=== PATIENT | female | born 1990 | race Caucasian/White ===

== ENCOUNTER 2020-05-12 11:34 | Emergency (ER) | payer BC, SELFPAY ==
--- NOTE | ~2020-05-12 | XR_ITS ---
EXAMINATION: XR chest 1V portable INDICATION: Chest pain TECHNIQUE: Portable AP chest at 1322 hours COMPARISON: None available FINDINGS: The lungs are free of acute opacities. There is no pleural effusion or pneumothorax. The ca rdiomediastinal silhouette is normal. IMPRESSION: 1. No acute cardiopulmonary abnormality. Reviewed, dictated and finalized at location A.
[2020-05-12 11:38] VITALS: BP 156/83; PULSE 105; RESP 18; TEMP 36.8; O2SAT 97
--- NOTE | 2020-05-12 11:40 | ECG_ITS ---
Measurements Intervals [place] Rate: 99 P: 63 [place]: 142 QRS: 19 QRSD: 94 T: 1 QT: 347 QTc: 447 Interpretive Statements SINUS RHYTHM BORDERLINE ST-T WAVE ABNORMALITY- ANTEROLAT/INF LEADS BASELINE ARTIFACT- I, II, III, AVR, AVL, AVF, V1 BORDERLINE ECG Electronically Signed On 05-12-2020 11:55:15 CDT by Jeancarlos Stoner D.O.
[2020-05-12 11:42] VITALS: PULSE 105
[2020-05-12 12:06] LABS: Basophils Absolute Auto 0.1 K/mm3 (0.0-0.1); Basophils Percent Auto 0.7 % (0.2-1.2); Eosinophils Absolute Auto 0.2 K/mm3 (0-0.3); Eosinophils Percent Auto 2.3 % (0-4.4); Hematocrit 42.7 % (37.0-47.0); Hemoglobin 14.3 g/dL (12.0-15.0); Immature Granulocyte Absolute 0.02 K/mm3 (0.00-0.031); Immature Granulocyte Percent A 0.2 % (0-0.5); Lymphocytes Absolute Auto 2.62 K/mm3 (0.9-3.2); Mean Corpuscular HGB Conc 33.5 g/dl (32-36); Mean Corpuscular Hemoglobin 30.1 pg (26-34); Mean Corpuscular Volume 89.9 fl (80-100); Mean Platelet Volume 11.5 fl (7.4-10.4); Monocytes Absolute Auto 0.6 K/mm3 (0.1-0.6); Neutrophils Absolute Auto 6.2 K/mm3 (1.3-6.7); Neutrophils Percent Auto 63.8 % (45.5-73.1); Platelet Count Result 288 k/mm3 (150-375); Red Blood Count 4.75 M/mm3 (4.2-5.4); Red Cell Distribution Width 12.3 % (11.5-14.5); White Blood Count 9.7 K/mm3 (4.5-10.0)
[2020-05-12 12:20] LABS: Add Urine Microscopic? YES; Appearance Urine Cloudy (Clear); Bacteria Urine Trace /hpf; Bilirubin Urine Negative (Negative); Blood Urine Negative (Negative); Color Urine Yellow (Yellow); Glucose Urine UA Negative (Negative); Ketones Urine Negative (Negative); Leukocyte Esterase Ur 3+ LEU/UL (Negative); Mucus Urine Rare /lpf; Nitrate Urine Negative (Negative); Protein Urine Negative (Negative); Specific Grav Ur 1.013 (1.001-1.035); Squamous Epithelial Cell Urine Many /hpf (Few); Urobilinogen Urine Negative mg/dL (<2.0); WBC Urine 16-20 /hpf
[2020-05-12 12:21] LABS: Amphetamine Screen Urine Negative (Negative); Barbiturate Screen Urine Negative (Negative); Benzodiazepines Screen Urine Negative (Negative); Cannabinoid Screen Urine Negative (Negative); Cocaine Screen Urine Negative (Negative); Methadone Screen Urine Negative (Negative); Opiate Screen Urine Negative (Negative); Phencyclidine Screen Urine Negative (Negative)
[2020-05-12 12:23] LABS: Alanine Aminotransferase 21 U/L (4-35); Albumin Level 4.4 g/dL (3.5-5.1); Alkaline Phosphatase 77 U/L (38-126); Anion Gap 8 mmol/L (8-16); Aspartate Amino Transferase 24 U/L (14-36); Bilirubin,Total 0.3 mg/dL (0.2-1.3); Blood Urea Nitrogen 8 mg/dL (7-17); Carbon Dioxide 25 mmol/L (22-30); Chloride 102 mmol/L (98-107); D Dimer 0.27 ug/mL (<0.48); Estimated CRCL calculation 116 ml/min; Estimated Glomerular Filt Rate > 60; Glucose 100 mg/dL (65-105); Potassium 3.5 mmol/L (3.4-5.0); Sodium 135 mmol/L (137-145)
[2020-05-12 12:34] LABS: Troponin I < 0.012 ng/mL (0.000-0.034)
[2020-05-12 12:49] VITALS: BP 147/89; PULSE 82; RESP 15; O2SAT 99
--- NOTE | 2020-05-12 13:01 | ED.CHESTPAIN ---
HPI - Chest Pain General Chief Complaint: Chest Pain Stated Complaint: chest pain Time Seen by Provider: 05/12/20 11:40 Source: patient and family Mode of arrival: ambulatory Limitations: no limitations History of Present Illness HPI narrative: 29 years old white female, obese presents with left upper chest sharp stabbing pain radiating to the left upper extremity started 2-hour prior to arrival to the emergency room, resolved immediately on arrival to the emergency room. Patient reports a lot of stress lately. Patient planning to do gastric sleeve surgery and she is very anxious about it. Patient had history of panic attack and anxiety. Evaluate MD complaint: chest pain Review of Systems Review of Systems: Narrative: CONSTITUTIONAL: Denies fever, chills, or sweats. EYES: Denies visual changes, redness, or discharge. ENT: Denies rhinorrhea, congestion, sore throat, or otalgia. CARDIOVASCULAR: Denies chest pain, palpitations, or edema. RESPIRATORY: Denies cough or dyspnea. GASTROINTESTINAL: Denies abdominal pain, nausea, vomiting, or diarrhea. GENITOURINARY: Denies dysuria or hematuria. SKIN: Denies rash or itching. MUSCULOSKELETAL: Denies back pain, joint pain, or myalgia. NEUROLOGIC: Denies headache, numbness, or weakness. PSYCHIATRIC: Denies anxiety or depression. [facility] Past Medical History Medical History (Updated 05/12/20 @ 13:21 by Nuha Godinez MD) Anxiety Obesity Social History Social History (Updated 05/12/20 @ 13:19 by Nuha Godinez MD) Smoking status: Never smoker Alcohol intake: never Substance use: never Exam Narrative: Exam Narrative: General appearance: Well-developed, well-nourished Skin: Normal color Head: Normocephalic, nontraumatic Eyes: Clear conjunctiva ENT: Oropharynx normal, ears normal, nose normal Neck: Supple, nontender Chest and respiratory: Airway patent, no respiratory distress, no accessory muscle use Heart: Regular rate/rhythm Abdomen: Soft, nontender, no organomegaly, quiet bowel sounds Vascular: Normal peripheral pulses, normal capillary refill. Musculoskeletal: Normal range of motion, nontender back Neurologic: Alert and oriented ?3, PASSENGER SCREENER is normal as tested, no gross motor deficit Course Course Emergency Course: Resolved Vital Signs Vital signs: Vital Signs Temperature 36.8 C 05/12/20 11:38 Pulse Rate 105 H 05/12/20 11:38 Respiratory Rate 18 05/12/20 11:38 Blood Pressure 156/83 H 05/12/20 11:38 Pulse Oximetry 97 05/12/20 11:38 Temperature 36.8 C 05/12/20 11:38 Pulse Rate 82 05/12/20 12:49 Respiratory Rate 15 05/12/20 12:49 Blood Pressure 147/89 H 05/12/20 12:49 Pulse Oximetry 99 05/12/20 12:49 MDM - Chest Pain MDM Narrative Medical decision making narrative: Panic attack, and anxiety is my concern. Patient does not have any risk factor for coronary artery disease, patient on contraceptive pills, d-dimer ordered. Further plan to follow. Differential Diagnosis Differential diagnosis: Likely pneumothorax, atypical chest pain, costochondritis and chest pain Lab Data Result diagrams: 05/12/20 11:52 05/12/20 11:52 Labs: Lab Results 05/12/20 05/12/20 05/12/20 Range/Units 11:52 11:52 11:52 WBC 9.7 (4.5-10.0) K/mm3 RBC 4.75 (4.2-5.4) M/mm3 Hgb 14.3 (12.0-15.0) g/dL Hct 42.7 (37.0-47.0) % MCV 89.9 (80-100) fl MCH 30.1 (26-34) pg MCHC 33.5 (32-36) g/dl RDW 12.3 (11.5-14.5) % Plt Count 288 (150-375) k/mm3 MPV 11.5 H (7.4-10.4) fl Immature Gran % (Auto) 0.2 (0-0.5) % Neut % (Auto) 63.8 (45.5-73.1) % Lymph % (Auto) 27.0 (18.3-44.2) % [place] % (Auto) 6.0 (2.6
[2020-05-12 13:57] VITALS: BP 129/79; PULSE 86; RESP 23; O2SAT 98
== END 2020-05-12 13:59 | disposition home or self-care (01) ==
PROVIDERS: Emergency Provider Emergency Medicine
DX: F43.22 Adjustment disorder with anxiety (principal); E66.9 Obesity, unspecified; Z68.41 Body mass index [BMI] 40.0-44.9, adult; R07.89 Other chest pain
CPT/HCPCS: 36415; 71045; 80053; 80307; 81001; 81025; 84484; 85025; 85380; 87086; 87088; 93005; 96374; 99284; J2060

== ENCOUNTER 2023-01-21 05:31 | Emergency (ER) | payer OTHER, SELFPAY ==
--- NOTE | ~2023-01-21 | CT_ITS ---
EXAMINATION: CT abdomen pelvis wo con DATE: 01/21/2023 06:45 INDICATION: Left-sided flank pain. Recent gastric bypass surgery. TECHNIQUE: Computed tomography (CT) of the abdomen and pelvis was performed without intravenous contr ast. The dose-length product was 921.69 mGy-cm. Automated exposure control and iterative reconstructi on technique were employed. COMPARISON: None. FINDINGS: Lung bases are unremarkable. Heart size normal. No significant pleural or pericardial effus ion. There are changes of gastric bypass surgery. There is a 4 mm left mid ureteral stone at the L4 l evel with mild left hydronephrosis. There is subtle perinephric edema. The liver, spleen, pancreas, adrenal glands and right kidney are unremarkable. Nonobstructive bowel g as pattern. There is a 7.2 cm right adnexal mass, likely enlarged ovary. Small amount of free fluid a djacent to the mass. IUD present. IMPRESSION: 1. Left mid ureteral stone measuring 4 mm with mild left hydronephrosis. 2: Right adnexal mass measuring 7.2 cm, likely enlarged ovary. Consider correlation with pelvic ultra sound. Reviewed, dictated and finalized at location A. IMPRESSION: 1. Left mid ureteral stone measuring 4 mm with mild left hydronephrosis. 2: Right adnexal mass measuring 7.2 cm, likely enlarged ovary. Consider correla tion with pelvic ultrasound.
[2023-01-21 05:38] VITALS: BP 122/79; PULSE 73; RESP 16; TEMP 36.4; O2SAT 97
[2023-01-21 06:01] LABS: Basophils Absolute Auto 0.1 K/mm3 (0.0-0.1); Basophils Percent Auto 0.7 % (0.2-1.2); Eosinophils Absolute Auto 0.1 K/mm3 (0-0.3); Eosinophils Percent Auto 1.9 % (0-4.4); Hematocrit 43.5 % (37.0-47.0); Hemoglobin 14.5 g/dL (12.0-15.0); Immature Granulocyte Absolute 0.02 K/mm3 (0.00-0.031); Immature Granulocyte Percent A 0.3 % (0-0.5); Lymphocytes Percent Auto 28.8 % (18.3-44.2); Mean Corpuscular HGB Conc 33.3 g/dl (32-36); Mean Corpuscular Hemoglobin 31.2 pg (26-34); Mean Corpuscular Volume 93.5 fl (80-100); Mean Platelet Volume 12.7 fl (7.4-10.4); Monocytes Absolute Auto 0.5 K/mm3 (0.1-0.6); Monocytes Percent Auto 6.6 % (2.6-8.5); Neutrophils Absolute Auto 4.5 K/mm3 (1.3-6.7); Neutrophils Percent Auto 61.7 % (45.5-73.1); Platelet Count Result 257 k/mm3 (150-375); Red Blood Count 4.65 M/mm3 (4.2-5.4); Red Cell Distribution Width 13.2 % (11.5-14.5); White Blood Count 7.3 K/mm3 (4.5-10.0)
[2023-01-21 06:20] LABS: Alanine Aminotransferase 19 U/L (6-35); Albumin Level 4.3 g/dL (3.5-5.1); Alkaline Phosphatase 104 U/L (38-126); Anion Gap 7 mmol/L (8-16); Aspartate Amino Transferase 22 U/L (14-36); Bilirubin,Total 0.6 mg/dL (0.2-1.3); Blood Urea Nitrogen 11 mg/dL (7-17); Calcium 9.5 mg/dL (8.4-10.2); Carbon Dioxide 27 mmol/L (22-30); Chloride 104 mmol/L (98-107); Estimated CRCL calculation 113 ml/min; Estimated Glomerular Filt Rate > 60; Glucose 108 mg/dL (65-110); Potassium 3.7 mmol/L (3.4-5.0); Sodium 138 mmol/L (137-145)
[2023-01-21 06:28] LABS: Appearance Urine Turbid (Clear); Bacteria Urine 4+ /hpf; Bilirubin Urine 1+ (Negative); Blood Urine 3+ (Negative); Color Urine Dark Yellow (Yellow); Glucose Urine UA Negative (Negative); Ketones Urine Trace mg/dL (Negative); Leukocyte Esterase Ur 2+ LEU/UL (Negative); Mucus Urine Present /lpf; Nitrate Urine Negative (Negative); Protein Urine 2+ mg/dL (Negative); RBC Urine >100 /hpf (0-2); Specific Grav Ur 1.034 (1.001-1.035); Squamous Epithelial Cell Urine Many /hpf (Few); Transitional Epi Cells Urine Present /hpf (None Seen); WBC Urine 51-100 /hpf
[2023-01-21 06:35] LABS: Add Urine Microscopic? YES
--- NOTE | 2023-01-21 06:39 | ED.GENADULT ---
HPI - General Adult General Chief complaint: Urogenital-Female <Pranay Soto MD - Last Filed: 01/31/23 21:07> Stated complaint: left side flank pain, possible kidney stone <Pranay Soto MD - Last Filed: 01/31/23 21:07> Time Seen by Provider: 01/21/23 05:58 <Pranay Soto MD - Last Filed: 01/31/23 21:07> History of Present Illness HPI narrative: This is a 32-year-old female presenting ED with chief complaint of left flank pain. The patient says that 2:00 a.m. she started to have a sharp pain in her stomach and left side. pain was 10 out 10 intensity, comes and goes and felt like when she had a kidney stone in the past. Patient denies fever, chills, nausea, vomiting. The patient states that she was just treated by her primary care physician for a urinary tract infection with nitrofurantoin. Since then she does not feel like her symptoms have improved but she has not followed up again with her primary care physician. Patient had a gastric bypass surgery Earlier this year. The patient is currently pain-free. <Pranay Soto MD - Last Filed: 01/31/23 21:07> Related Data Allergies/adverse reactions: Allergies Allergy/AdvReac Type Severity Reaction Status Date / Time No Known Allergies Allergy Verified 01/21/23 05:32 <Pranay Soto MD - Last Filed: 01/31/23 21:07> [facility] Past Medical History Medical History: Medical History (Updated 01/22/23 @ 00:00 by Maurisio Salguero) Anxiety Obesity <Pranay Soto MD - Last Filed: 01/31/23 21:07> Social History Social History: Social History (Updated 05/12/20 @ 13:19 by Nuha Godinez MD) Smoking status: Never smoker Alcohol intake: never Substance use: never <Pranay Soto MD - Last Filed: 01/31/23 21:07> Exam Narrative: APPEARANCE: No apparent distress. Head: atraumatic. EYES: EOMI, NOSE: Atraumatic NECK: Trachea midline RESPIRATORY: No increased rate of breathing CARDIOVASCULAR: RRR, ABDOMINAL: Non-distended , no CVA tenderness MUSCULOSKELETAl: No obvious deformities NEURO: Alert. Moving 4/4 extremities SKIN:: Warm, dry. Normal color PSYCHIATRIC: Normal affect <Pranay Soto MD - Last Filed: 01/31/23 21:07> Course Reevaluation(s) Reevaluation #1: Patient care was signed out to me by Dr. Soto. Patient was going to be treated for urinary tract infection. Patient was started on a dose of IV Rocephin while in the emergency department for her underlying bladder infection. CT scan was ordered to evaluate for a possible kidney stone. Patient does have a prior history of ureteral calculi. CT scan did show evidence of a 4 mm mid ureteral stone with mild hydronephrosis. Patient is afebrile with no leukocytosis. Patient's creatinine is at her baseline. Patient is well-appearing and is nontoxic. Patient states her pain is significantly improved. I did discuss the case with Dr. Ward who was on for urology and he was also comfortable with my plan for treating the patient with antibiotics and having the patient have close follow-up. Patient was also started on Flomax while in the ED will be discharged home with Flomax and a p.o. antibiotic. Patient and family were updated on the results of the work-up including the plan to treat with antibiotics. Patient and family were updated on reasons to return to the emergency department. All questions and concerns were addressed. Patient was well-appearing and in no distress at time of discharge from the emergency department. Patient was called regarding the suspected ovarian cyst seen on the CT scan. <Andrew Kaur MD - Last Filed: 01/21/23 09:29> Vital Signs Vital signs: Vital Signs Temperature 97.6 F 01/21/23 05:38 Pulse Rate 73 01/21/23 05:38 Respiratory Rate 16 01/21/23 05:38 Blood Pressure 122/79 01/21/23 05:38 Pulse Oximetry 97 01/21/23 05:38 Oxygen Delivery Room Air 01/21/23 05:38 Temperature
--- NOTE | 2023-01-21 07:01 | PC.NURSE ---
Nurse report given to Sneha SOLIZ
[2023-01-21] MEDS: TAMSULOSIN HCL 0.4 MG CAPSULE PO (08:22)
== END 2023-01-21 08:26 | disposition home or self-care (01) ==
PROVIDERS: Emergency Provider Emergency Medicine
DX: N39.0 Urinary tract infection, site not specified (principal); N20.1 Calculus of ureter
CPT/HCPCS: 36415; 74176; 80053; 81001; 81025; 85025; 87086; 87088; 96365; 99284; A9270; J0696

== ENCOUNTER 2023-02-12 22:44 | Emergency (ER) | payer OTHER, SELFPAY ==
--- NOTE | ~2023-02-12 | CT_ITS ---
Non-contrast CT scan of the Abdomen and Pelvis Clinical indication: Left flank pain Technique: 2.5 mm axial scans were obtained through the abdomen and pelvis without intravenous or or al contrast. Dose reduction technique was used on this scan by utilizing automated exposure control a nd iterative reconstruction technique. The dose-length product (DLP) was 382.65 mGy-cm. COMPARISON: 01/21/2023 Findings: Images through the lung bases reveal no abnormalities. 4 mm left ureteral stone has migrated somewhat more distally, to the mid to distal left ureter (axial image 135). There is persistent mild left hydroureteronephrosis to the level of the stone. No right renal or right ureteral stone. No right hydronephrosis. The liver, spleen, pancreas, gallbladder, and adrenals appear normal. There is no aortic aneurysm. There is no evidence of bowel obstruction. Images through the pelvis were performed. There is no evidence of ascites or lymphadenopathy. Urinary bladder unremarkable. IUD in place. No adnexal mass evident otherwise. Impression: Partial migration of 4 mm left renal stone to the mid to distal left ureter on the current exam. Pers istent mild left hydroureteronephrosis to the level of the stone. IUD in place. Reviewed, dictated and finalized at location . Impression: Partial migration of 4 mm left renal stone to the mid to distal left ureter on the current exam. Persistent mild left hydroureteronephrosis to the level of th e stone. IUD in place.
[2023-02-12 22:49] VITALS: BP 134/83; PULSE 68; RESP 16; TEMP 36.4; O2SAT 100
--- NOTE | 2023-02-13 00:09 | ED.FEMALEGU ---
HPI - Female Genitourinary General Chief complaint: Urogenital-Female <Nate Cornejo PA-C - Last Filed: 02/13/23 03:42> Stated complaint: pelvic pain <ENEDELIA Krishnan Last Filed: 02/13/23 03:42> Time Seen by Provider: 02/12/23 23:20 <ENEDELIA Krishnan Last Filed: 02/13/23 03:42> Source: patient <ENEDELIA Krishnan Last Filed: 02/13/23 03:42> Mode of arrival: ambulatory <ENEDELIA Krishnan Last Filed: 02/13/23 03:42> Limitations: no limitations <ENEDELIA Krishnan Last Filed: 02/13/23 03:42> History of Present Illness HPI Narrative: This is a 32-year-old female with PMH of ureteral stones presents to the ED with chief complaint of left flank pain radiating into the left side of the abdomen. Patient states that she has also had some urgency, dysuria and hematuria. She reports history a couple of stones in the past year that have all passed on their own. She reports nausea. States this feels similar to last episode of stone about a month ago that was on the left side. Denies any fevers, chills, vomiting, diarrhea, chest pain, shortness of breath. <ENEDELIA Krishnan Last Filed: 02/13/23 03:42> Related Data Allergies/Adverse reactions: Allergies Allergy/AdvReac Type Severity Reaction Status Date / Time No Known Allergies Allergy Verified 02/13/23 00:34 <ENEDELIA Krishnan Last Filed: 02/13/23 03:42> Review of Systems Review of Systems: CONSTITUTIONAL: Denies fever, chills, or sweats. EYES: Denies visual changes, redness, or discharge. ENT: Denies rhinorrhea, congestion, sore throat, or otalgia. CARDIOVASCULAR: Denies chest pain, palpitations, or edema. RESPIRATORY: Denies cough or dyspnea. GASTROINTESTINAL: See HPI GENITOURINARY: See HPI SKIN: Denies rash or itching. MUSCULOSKELETAL: Denies back pain, joint pain, or myalgia. NEUROLOGIC: Denies headache, numbness, dizziness, or weakness. PSYCHIATRIC: Denies anxiety or depression. <Nate Cornejo PA-C - Last Filed: 02/13/23 03:42> [facility] Past Medical History Medical History: Medical History (Updated 02/13/23 @ 04:19 by Jacob Esparza MD) Anxiety Obesity <Nate Cornejo PA-C - Last Filed: 02/13/23 03:42> Social History Social History: Social History (Updated 05/12/20 @ 13:19 by Nuha Godinez MD) Smoking status: Never smoker Alcohol intake: never Substance use: never <Nate Cornejo PA-C - Last Filed: 02/13/23 03:42> Exam Narrative: GENERAL: Well-appearing, well-nourished. Appears in pain. HEAD: Normocephalic, atraumatic. EYES: PERRLA and EOMI. ENT: Nares clear, no rhinorrhea or epistaxis. Mucous membranes moist. Oropharynx without tonsillar hypertrophy exudate or other lesions. NECK: Supple. No adenopathy or masses. CHEST: No respiratory distress. Clear to auscultation. No wheezes rales or rhonchi HEART: Regular rate and rhythm. No murmur heard. Normal peripheral pulses. ABDOMEN: Significant left flank tenderness. Negative right flank tenderness. Soft, otherwise nontender, nondistended, normal active bowel sounds. Negative peritoneal signs. MSK: Normal range of motion. No edema. SKIN: Warm, dry, no rash. NEURO: Alert and oriented x3. No focal deficits. PSYCH: Normal mood and affect. <Nate Cornejo PA-C - Last Filed: 02/13/23 03:42> Course UNDERWEAR HEMMER/PA Physician Supervision This visit was performed by both the physician and an APC. I performed all aspects of the MDM as documented <Jacob Esparza MD - Last Filed: 02/13/23 04:20> Vital Signs Vital signs: Vital Signs Temperature 36.4 C 02/12/23 22:49 Pulse Rate 68 02/12/23 22:49 Respiratory Rate 16 02/12/23 22:49 Blood Pressure 134/83 02/12/23 22:49 Pulse Oximetry 100 02/12/23 22:49 Temperature 36.4 C 02/12/23 22:49 Pulse Rate 68 02/12/23 22:49 Respiratory Rate 16 02/12/23 22:49 Blood Pressure 134/83 02/12/23 22:49 Pulse Oximetry 1
[2023-02-13 00:31] LABS: Basophils Absolute Auto 0.1 K/mm3 (0.0-0.1); Basophils Percent Auto 0.6 % (0.2-1.2); Eosinophils Absolute Auto 0.1 K/mm3 (0-0.3); Hematocrit 42.2 % (37.0-47.0); Immature Granulocyte Absolute 0.03 K/mm3 (0.00-0.031); Immature Granulocyte Percent A 0.3 % (0-0.5); Lymphocytes Absolute Auto 1.72 K/mm3 (0.9-3.2); Lymphocytes Percent Auto 14.8 % (18.3-44.2); Mean Corpuscular HGB Conc 33.2 g/dl (32-36); Mean Corpuscular Hemoglobin 31.3 pg (26-34); Mean Corpuscular Volume 94.2 fl (80-100); Mean Platelet Volume 11.7 fl (7.4-10.4); Monocytes Absolute Auto 0.7 K/mm3 (0.1-0.6); Monocytes Percent Auto 6.4 % (2.6-8.5); Neutrophils Absolute Auto 8.9 K/mm3 (1.3-6.7); Neutrophils Percent Auto 76.9 % (45.5-73.1); Platelet Count Result 252 k/mm3 (150-375); Red Blood Count 4.48 M/mm3 (4.2-5.4); White Blood Count 11.6 K/mm3 (4.5-10.0)
[2023-02-13 00:40] LABS: Bacteria Urine 1+ /hpf; Need Manual Microscopic Reviewed; Non Pathogenic Casts 0-2; RBC Urine >100 /hpf (0-2); Squamous Epithelial Cell Urine Many /hpf (Few); WBC Urine 21-50 /hpf
[2023-02-13 00:41] LABS: Appearance Urine Turbid (Clear); Bilirubin Urine 1+ (Negative); Blood Urine 3+ (Negative); Glucose Urine UA Negative (Negative); Ketones Urine 1+ mg/dL (Negative); Leukocyte Esterase Ur 1+ LEU/UL (Negative); Nitrate Urine Negative (Negative); Protein Urine 2+ mg/dL (Negative); Specific Grav Ur 1.031 (1.001-1.035); pH Urine 5.5 (5.0-9.0)
[2023-02-13 00:42] LABS: Color Urine Amber (Yellow)
[2023-02-13 00:43] LABS: Add Urine Microscopic? YES
[2023-02-13 00:49] LABS: Alanine Aminotransferase 21 U/L (6-35); Albumin Level 4.6 g/dL (3.5-5.1); Alkaline Phosphatase 106 U/L (38-126); Anion Gap 10 mmol/L (8-16); Aspartate Amino Transferase 29 U/L (14-36); Bilirubin,Total 0.7 mg/dL (0.2-1.3); Blood Urea Nitrogen 19 mg/dL (7-17); Carbon Dioxide 25 mmol/L (22-30); Chloride 101 mmol/L (98-107); Estimated CRCL calculation 98 ml/min; Estimated Glomerular Filt Rate > 60; Glucose 96 mg/dL (65-110); Potassium 3.6 mmol/L (3.4-5.0); Sodium 136 mmol/L (137-145)
[2023-02-13] MEDS: SODIUM CHLORIDE 0.9% IV 1,000 ML 999 ML IV CONT (01:11)
--- NOTE | 2023-02-13 01:12 | PC.NURSE ---
Patient states she wants to hold off on pain medication and zofran at this time.
[2023-02-13] MEDS: TAMSULOSIN HCL 0.4 MG CAPSULE PO (04:30)
[2023-02-13] MEDS: CEPHALEXIN 500 MG CAPSULE PO (04:30)
== END 2023-02-13 04:34 | disposition home or self-care (01) ==
PROVIDERS: Physician Assistant; Emergency Provider Emergency Medicine
DX: N13.2 Hydronephrosis with renal and ureteral calculous obstruction (principal)
CPT/HCPCS: 36415; 74176; 80053; 81001; 81025; 85025; 87086; 87088; 96360; 99284; A9270; J7030

== ENCOUNTER 2025-03-05 14:27 | Emergency (ER) | payer OTHER, SELFPAY ==
--- NOTE | ~2025-03-05 | CT_ITS ---
CLINICAL INDICATION: Abdominal pain and burning with urination COMPARISON: 02/13/2023 and 01/22/2020.. TECHNIQUE: Multiple contiguous axial images of the abdomen and pelvis were performed following the ad ministration of with 100 mL Omnipaque-350 intravenous contrast The dose-length product (DLP) was 347.14 mGy-cm. Automated exposure control and iterative reconstruction technique were employed. FINDINGS/OBSERVATIONS: Visualized lower thorax: The bilateral lung bases are clear. The heart is of normal size, without pericardial effusion. Liver: The liver demonstrates homogeneous enhancement and is not enlarged. Gallbladder and biliary system: The gallbladder is only minimally distended, and otherwise unremarkable. Pancreas: The pancreas enhances homogeneously without ductal dilatation. Spleen: The spleen enhances homogeneously and is not enlarged . Kidneys: 4 mm focus of decreased attenuation within the interpolar region of the right kidney, too sm all to characterize but statistically a cyst. The remainder of the bilateral kidneys otherwise enhance symmetrically without hydronephrosis or brittaney l calculi. Adrenal glands: Unremarkable. Gastrointestinal tract: Postoperative change within the upper abdomen consistent with prior gastric bypass surgery. Fecal stasis within the colon. Appendix: The air-filled appendix is of normal caliber (axial series, images 99 through 102). Vasculature: Unremarkable. Lymph nodes: No pathologically enlarged or morphologically suspicious lymph nodes within the retroperitoneum or at the root of the mesentery. Pelvic structures: The bladder is only minimally distended, and otherwise unremarkable. The uterus is anteverted and anteflexed. Intrauterine device is present. The bilateral ovaries are of normal size for a patient of this age. Involuting cyst within the right ovary measuring 23 mm in greatest dimension. Body wall and musculoskeletal: Small fat-containing umbilical hernia. No significant degenerative disease within the lower thoracic or lumbosacral spine. IMPRESSION: Involuting cyst within the right ovary. Otherwise, unremarkable contrast-enhanced CT examination of the abdomen and pelvis, as detailed above . Reviewed, dictated and finalized at location A. IMPRESSION: Involuting cyst within the right ovary. Otherwise, unremarkable contrast-enhanced CT examination of the abdomen and pel vis, as detailed above.
[2025-03-05 14:33] VITALS: BP 131/86; PULSE 80; RESP 18; TEMP 36.6; O2SAT 100
[2025-03-05 15:22] LABS: Basophils Absolute Auto 0.1 K/mm3 (0.0-0.1); Basophils Percent Auto 0.6 % (0.2-1.2); Eosinophils Absolute Auto 0.1 K/mm3 (0-0.3); Eosinophils Percent Auto 0.8 % (0-4.4); Hematocrit 42.3 % (37.0-47.0); Immature Granulocyte Absolute 0.03 K/mm3 (0.00-0.031); Immature Granulocyte Percent A 0.3 % (0-0.5); Lymphocytes Absolute Auto 1.84 K/mm3 (0.9-3.2); Lymphocytes Percent Auto 18.4 % (18.3-44.2); Mean Corpuscular HGB Conc 33.1 g/dl (32-36); Mean Corpuscular Hemoglobin 31.2 pg (26-34); Mean Corpuscular Volume 94.2 fl (80-100); Mean Platelet Volume 11.5 fl (7.4-10.4); Monocytes Absolute Auto 0.6 K/mm3 (0.1-0.6); Monocytes Percent Auto 5.5 % (2.6-8.5); Neutrophils Absolute Auto 7.4 K/mm3 (1.3-6.7); Neutrophils Percent Auto 74.4 % (45.5-73.1); Platelet Count Result 243 k/mm3 (150-375); Red Blood Count 4.49 M/mm3 (4.2-5.4); Red Cell Distribution Width 12.6 % (11.5-14.5)
[2025-03-05 15:23] LABS: BEDSIDEPREGUCG Negative (Negative)
[2025-03-05 15:26] LABS: Add Urine Microscopic? YES; Appearance Urine Cloudy (Clear); Bacteria Urine 2+ /hpf; Bilirubin Urine Negative (Negative); Blood Urine 2+ (Negative); Color Urine Yellow (Yellow); Glucose Urine UA Negative (Negative); Ketones Urine Negative (Negative); Leukocyte Esterase Ur 3+ LEU/UL (Negative); Nitrate Urine Negative (Negative); Non Pathogenic Casts 0-2; Protein Urine 1+ mg/dL (Negative); RBC Urine 21-50 /hpf (0-2); Specific Grav Ur 1.012 (1.001-1.035); Squamous Epithelial Cell Urine Few /hpf (Few); WBC Urine 51-100 /hpf (0-3); pH Urine 7.5 (5.0-9.0)
[2025-03-05 15:32] LABS: Alanine Aminotransferase 22 U/L (6-35); Albumin Level 4.6 g/dL (3.5-5.1); Alkaline Phosphatase 60 U/L (38-126); Anion Gap 10 mmol/L (4-12); Aspartate Amino Transferase 23 U/L (14-36); Bilirubin,Total 0.4 mg/dL (0.2-1.3); Blood Urea Nitrogen 11 mg/dL (7-17); Calcium 9.4 mg/dL (8.4-10.2); Carbon Dioxide 25 mmol/L (22-30); Chloride 104 mmol/L (98-107); Estimated CRCL calculation 92 ml/min; Estimated Glomerular Filt Rate > 60; Glucose 91 mg/dL (65-110); Potassium 3.6 mmol/L (3.4-5.0); Sodium 139 mmol/L (137-145); Total Protein 7.5 g/dL (6.3-8.2)
--- NOTE | 2025-03-05 15:47 | ED_ITS ---
HPI - Female Genitourinary General Chief complaint: Urogenital-Female Stated complaint: burning with urination Time Seen by Provider: 03/05/25 15:33 Source: patient Mode of arrival: ambulatory Limitations: no limitations History of Present Illness HPI Narrative: This is a 34-year-old female that presents the emergency department for dysuria. Ongoing since yesterday. Reports she was started on Bactrim today for UTI. She had blood in her urine shows prompted be seen in the ER she has history of kidney stones. She would like to be tested for STDs. Denies fever, vomiting. Related Data Allergies Allergy/AdvReac Type Severity Reaction Status Date / Time No Known Allergies Allergy Verified 03/05/25 14:36 Review of Systems 2 Review of Systems: All systems reviewed & are unremarkable except as noted in HPI and below PMFSH Past Medical History Medical History (Updated 03/05/25 @ 17:29 by Beatris Rivera PA-C) Anxiety Obesity Social History Social History (Updated 05/12/20 @ 13:19 by Nuha Godinez MD) Smoking status: Never smoker Alcohol intake: never Substance use: never Exam 2 Narrative: GENERAL: Well-appearing, well-nourished, and in no acute distress. HEAD: Normocephalic, atraumatic. EYES: EOMI. CHEST: Clear to auscultation. No respiratory distress. No wheezes rales or rhonchi HEART: Regular rate and rhythm. No murmur heard. Normal peripheral pulses. ABDOMEN: Soft, nontender, nondistended, normal active bowel sounds. Right CVA tenderness EXTREMITIES: Normal range of motion. No edema. SKIN: Warm, dry, no rash. NEURO: No focal deficits. Alert and oriented x3. PSYCH: Normal mood and affect PELVIC: Normal external genitalia. Normal appearing cervix. No CMT. Scant blood in the vaginal vault. No abnormal drainage Course Course Emergency Course: patient updated on her workup and agrees with plan of care Vital Signs Vital signs: Vital Signs Temperature 97.9 F 03/05/25 14:33 Pulse Rate 80 03/05/25 14:33 Respiratory Rate 18 03/05/25 14:33 Blood Pressure 131/86 03/05/25 14:33 Pulse Oximetry 100 03/05/25 14:33 Oxygen Delivery Room Air 03/05/25 14:33 Temperature 97.9 F 03/05/25 14:33 Pulse Rate 80 03/05/25 14:33 Respiratory Rate 18 03/05/25 14:33 Blood Pressure 131/86 03/05/25 14:33 Pulse Oximetry 100 03/05/25 14:33 Oxygen Delivery Room Air 03/05/25 14:33 MDM - Female Genitourinary MDM Narrative Medical decision making narrative: Patient presents emergency department for dysuria, hematuria. She is afebrile nontoxic appearing. Cbc without leukocytosis. Metabolic panel without concerning findings. Urine with evidence of infection, this was sent for culture. test is negative. Chlamydia, gonorrhea Trichomonas were negative. CT abdomen and pelvis showing involuting cyst within the right ovary, otherwise no acute findings. Patient given dose of Rocephin in the ER. She was sent in prescription for Bactrim by her grain spouter. Instructed to finish oral antibiotics as prescribed. She was given warnings to return to the ER Differential Diagnosis Differential diagnosis: Likely urinary tract infection, bacterial vaginosis, trichomoniasis, cervicitis, vaginitis and cystitis Lab Data Attestation: I reviewed the patient's lab results. 03/05/25 15:16 03/05/25 15:16 Labs: Lab Results 03/05/25 03/05/25 03/05/25 Range/Units 15:14 15:16 15:21 WBC 10.0 (4.5-10.0) K/mm3 RBC 4.49 (4.2-5.4) M/mm3 Hgb 14.0 (12.0-15.0) g/dL Hct 42.3 (37.0-47.0) % MCV 94.2 (80-100) fl MCH 31.2 (26-34) pg MCHC 33.1 (32-36) g/dl RDW 12.6 (11.5-14.5) % Plt Count 243 (150-375) k/mm3 MPV 11.5 H (7.4-10.4) fl Immature Gran % (Auto) 0.3 (0-0.5) % Neut % (Auto) 74.4 H (45.5-73.1) % Lymph % (Auto) 18.4 (18.3-44.2) % [place] % (Auto) 5.5 (2.6-8.5) % Eos % (Auto) 0.8 (0-4.4) % Baso % (Auto) 0.6 (0.2-1.2) % Lymph # (Auto) 1.84 (0.9-3.2) K/mm3 [place] # (Auto) 0.6 (0.1-0.6) K/mm3 Eos # (Auto) 0.1 (0-0.3) K/mm3 Baso # (Auto) 0.1 (0.0-0.1) K/mm3 Abs Immat Gran (auto) 0.03 (0.00-0.031) K/mm3 Absolute Neuts (auto) 7.4 H (1.3-6.7) K/mm3 Absolute Nucleated RBC 0.000 (0.0-0.012) K/mm3 Nucleated RBC % 0.0 (0.0-0.2) % Sodium 139 (137-145) mmol/L Potassium 3.6 (3.4-5.0) mmol/L Chloride 104 (98-107) mmol/L Carbon Dioxide 25 (22-30) mmol/L Anion Gap 10 (4-12) mmol/L BUN 11 D (7-17) mg/dL Creatinine 0.69 L (0.7-1.0) mg/dL Estim Creat Clear Calc 92 ml/min Estimated GFR > 60 (59 - ) Glucose 91 (65-110) mg/dL Calcium 9.4 (8.4-10.2) mg/dL Total Bilirubin 0.4 (0.2-1.3) mg/dL AST 23 (14-36) U/L ALT 22 (6-35) U/L Alkaline Phosphatase 60 (38-126) U/L Total Protein 7.5 (6.3-8.2) g/dL Albumin 4.6 (3.5-5.1) g/dL Urine Color Yellow (Yellow) Urine Appearance Cloudy H (Clear) Urine pH 7.5 (5.0-9.0) Ur Specific [place] 1.012 (1.001-1.035) Urine Protein 1+ H (Negative) mg/dL Urine Glucose (UA) Negative (Negative) mg/dL Urine Ketones Negative (Negative) mg/dL Ur Blood (Man) 2+ H (Negative) Urine Nitrate Negative (Negative) Urine Bilirubin Negative (Negative) Urine Urobilinogen 1.0 (<2.0) mg/dL Leukocyte Esterase Rfl 3+ H (Negative) HANNA[place]/UL Urine RBC 21-50 H (0-2) /hpf Urine WBC 51-100 H (0-3) /hpf Ur Squamous Epith Cells Few (Few) /hpf Urine Bacteria 2+ H /hpf Urine Casts 0-2 POC Urine HCG, Qual Negative (Negative) C. trachomatis (PCR) Not detected (NOT DETECTE) N. gonorrhoeae (PCR) Not detected (NOT DETECTE) T. vaginalis (PCR) Not detected (NOT DETECTE) Bact Vaginosis Panel 03/05/25 Range/Units 16:43 WBC (4.5-10.0) K/mm3 RBC (4.2-5.4) M/mm3 Hgb (12.0-15.0) g/dL Hct (37.0-47.0) % MCV (80-100) fl MCH (26-34) pg MCHC (32-36) g/dl RDW (11.5-14.5) % Plt Count (150-375) k/mm3 MPV (7.4-10.4) fl Immature Gran % (Auto) (0-0.5) % Neut % (Auto) (45.5-73.1) % Lymph % (Auto) (18.3-44.2) % [place] % (Auto) (2.6-8.5) % Eos % (Auto) (0-4.4) % Baso % (Auto) (0.2-1.2) % Lymph # (Auto) (0.9-3.2) K/mm3 [place] # (Auto) (0.1-0.6) K/mm3 Eos # (Auto) (0-0.3) K/mm3 Baso # (Auto) (0.0-0.1) K/mm3 Abs Immat Gran (auto) (0.00-0.031) K/mm3 Absolute Neuts (auto) (1.3-6.7) K/mm3 Absolute Nucleated RBC (0.0-0.012) K/mm3 Nucleated RBC % (0.0-0.2) % Sodium (137-145) mmol/L Potassium (3.4-5.0) mmol/L Chloride (98-107) mmol/L Carbon Dioxide (22-30) mmol/L Anion Gap (4-12) mmol/L BUN (7-17) mg/dL Creatinine (0.7-1.0) mg/dL Estim Creat Clear Calc ml/min Estimated GFR (59 - ) Glucose (65-110) mg/dL Calcium (8.4-10.2) mg/dL Total Bilirubin (0.2-1.3) mg/dL AST (14-36) U/L ALT (6-35) U/L Alkaline Phosphatase (38-126) U/L Total Protein (6.3-8.2) g/dL Albumin (3.5-5.1) g/dL Urine Color (Yellow) Urine Appearance (Clear) Urine pH (5.0-9.0) Ur Specific [place] (1.001-1.035) Urine Protein (Negative) mg/dL Urine Glucose (UA) (Negative) mg/dL Urine Ketones (Negative) mg/dL Ur Blood (Man) (Negative) Urine Nitrate (Negative) Urine Bilirubin (Negative) Urine Urobilinogen (<2.0) mg/dL Leukocyte Esterase Rfl (Negative) HANNA[place]/UL Urine RBC (0-2) /hpf Urine WBC (0-3) /hpf Ur Squamous Epith Cells (Few) /hpf Urine Bacteria /hpf Urine Casts POC Urine HCG, Qual (Negative) C. trachomatis (PCR) (NOT DETECTE) N. gonorrhoeae (PCR) (NOT DETECTE) T. vaginalis (PCR) (NOT DETECTE) Bact Vaginosis Panel Pending Imaging Data Radiologist's impression: ITS Impressions Abdomen/Pelvis CT 03/05/25 16:09 IMPRESSION: Involuting cyst within the right ovary. Otherwise, unremarkable contrast-enhanced CT examination of the abdomen and pelvis, as detailed above. Critical Care Time Critical Care Time Critical Care Time: No Discharge Plan Discharge Clinical Impression: Acute UTI Patient Disposition: Home Condition: Stable Instructions: Antibiotic Form, Urinary Tract Infection in Women (ED) Additional Instructions: Return to the ER if you experience fever, abdominal pain with nausea and vomiting, you are unable to keep down liquids or solids, or any other symptoms that are concerning to you Remain well hydrated. Take oral antibiotics as prescribed Follow up with your primary care doctor Patient Language: Spanish Prescriptions: No Action tamsulosin [Flomax] 0.4 mg capsule 0.4 mg PO DAILY Qty: 14 0RF hydrocodone-acetaminophen 5-325 mg tablet 1 tablet PO Q8H PRN (Reason: pain) Qty: 10 0RF cephalexin 500 mg capsule 500 mg PO Q12H 10 Days Qty: 20 0RF cephalexin 500 mg capsule 500 mg PO Q12H 7 Days Qty: 14 0RF tamsulosin [Flomax] 0.4 mg capsule 0.4 mg PO DAILY Qty: 10 0RF ondansetron 4 mg tablet,disintegrating 4 mg PO Q8H PRN (Reason: nausea and vomiting) Qty: 10 0RF hydrocodone-acetaminophen 5-325 mg tablet 1 tablet PO Q6H PRN (Reason: pain) 3 Days Qty: 12 0RF Follow-up/Referrals: UNKNOWN,DOCTOR [Primary Care Provider] -
[2025-03-05 17:27] LABS: Trichomonas Vag PCR NOT DETECTED (NOT DETECTE)
[2025-03-05 17:53] LABS: Chlamydia trachomatis NOT DETECTED (NOT DETECTE); Neisseria gonorrhoeae PCR NOT DETECTED (NOT DETECTE)
[2025-03-05 18:17] VITALS: BP 120/68; PULSE 78; RESP 16; TEMP 36.6; O2SAT 100
[2025-03-07 14:28] LABS: Bacterial Vaginosis NEGATIVE (NEGATIVE)
== END 2025-03-05 18:19 | disposition home or self-care (01) ==
PROVIDERS: Emergency Medicine; Emergency Provider Physician Assistant
DX: N39.0 Urinary tract infection, site not specified (principal)
CPT/HCPCS: 36415; 74177; 80053; 81001; 81025; 81513; 85025; 87070; 87077; 87086; 87147; 87186; 87491; 87591; 87661; 96365; 99284; J0696; Q9967

== ENCOUNTER 2025-09-02 20:40 | Emergency (ER) | payer OTHER, SELFPAY ==
[2025-09-02 21:28] VITALS: BP 147/72; PULSE 95; RESP 16; TEMP 36.5; O2SAT 100
== END 2025-09-02 22:54 | disposition left against medical advice (07) ==
DX: F10.239 Alcohol dependence with withdrawal, unspecified (principal)
CPT/HCPCS: 99199